=== PATIENT | male | born 1990 | race Caucasian/White ===

== ENCOUNTER 2016-08-20 19:53 | Emergency (ER) | payer OTHER ==
--- NOTE | 2016-08-20 20:36 | ED CLINICAL REPORT ---
Clinical Report - Physicians/Mid Levels [facility] [address] [place] [address] 08/20/2016 20:01 Patient: JEROMY HEALY Time Seen: 20:13; upon arrival, initial patient contact, initial documentation, patient care assumed. Arrived- By private vehicle. Historian- patient. HISTORY OF PRESENT ILLNESS Chief Complaint: Injury to the left thumb. The injury happened just prior to arrival. Occurred at work. The patient sustained a laceration from a knife. Patient is experiencing mild pain. Patient denies injury to the head or neck. No other injury. REVIEW OF SYSTEMS The patient sustained a laceration. No swelling, tingling, numbness or weakness. All systems otherwise negative, except as recorded above. PAST HISTORY See nurses notes. PROBLEMS: Hypotension. Hypovolemia. Dizziness. Back Pain. Lumbar Radiculopathy. Spondolitis. --20:18 Kailash Long R.N. ADDITIONAL SURGERIES: Hernia Repair. Inguinal Hernia Repair. Tonsillectomy. --20:18 Kailash Long, R.N. The patient's dominant hand is the right. Tetanus immunization status is unknown. SOCIAL HISTORY Heavy tobacco smoker. Regular alcohol use; consumes liquor weekly. No drug use. No recent travel. Is a local resident. FAMILY HISTORY No significant family medical history. ADDITIONAL NOTES The nursing notes have been reviewed with agreement regarding the chief complaint, HPI, ROS, PMH and patient medications and allergies. PHYSICAL EXAM Vital Signs: 08/20/2016 20:13 BP: 147/116. HR: 102. RR: 16. O2 saturation: 100%. Temp: 99 F. Pain level now: 4/10. Have been reviewed as abnormal. Hypertensive. Tachycardic. Respiratory rate normal. Temperature normal. Oxygen saturation normal. Appearance: Alert. Oriented X3. No acute distress. Head: Head atraumatic. Eyes: Pupils equal, round and reactive to light. Eyes normal inspection. Respiratory: No respiratory distress. Skin: Skin warm and dry. Skin intact. Extremities: Hand injury present. Tip of left thumb: mild tenderness and superficial laceration, which involves the nail bed; (superficial lac to part of nail and skin, no active bleeding, no closure needed). No erythema, swelling, puncture wound or foreign body. No subungual hematoma, nail avulsion, exposed bone or loss of the nail bed on the left thumb or tip amputation of the left thumb. Tip of left index finger. No wrist injury. Hand and wrist exam otherwise negative. Extremities otherwise negative. Neuro, Vascular and Tendons: Vascular status intact. Sensation intact. Motor intact. Tendon function intact. Neuro: Oriented X 3. No motor deficit. No sensory deficit. Note: isolated injury to digit. PROGRESS AND PROCEDURES Course of Care: 20:35 08/20/16. L&I paperwork completed. Patient counseled in person regarding the patient's stable condition and diagnosis. 20:35. Differential Diagnosis: Other possible considerations: finger lac, fb, skin/nail avulsion. Above considerations are based on history and physical exam. Differential diagnosis was discussed with patient. Disposition: Discharged home in good and improved condition (20:35). Condition: good and stable. CLINICAL IMPRESSION Single superficial laceration to the left thumb with fingernail injury.Treatment of laceration not delayed. No infection or foreign body present. INSTRUCTIONS Protect wound and keep wound area clean. Soak in warm soapy water. Apply bacitracin twice daily. Warnings: TETANUS: You were given a tetanus shot during your visit. Make a note for future reference. GENERAL WARNINGS: Return or contact your physician immediately if your condition worsens or changes unexpectedly, if not improving as expected, or if other problems arise. Specifically return if problem worsens. Follow-up: Follow up with your doctor in about three days as needed and for wound check. Call for an appointment. Summary of care provided to patient. Understanding of the discharge instructions verbalized by patient. (Electronically signed by Dai De Leon A.R.N.P. 08/20/2016 22:58)
--- NOTE | 2016-08-20 20:36 | ED ORDER SUMMARY ---
..... Patient: JEROMY HEALY OrderSheet [facility] VisitID: [id number] [address] [place] [address] 26y, M Registration Date/Time: 08/20/2016 ORDER SHEET Weight: 67.1 kg (stated) Allergies: No Known Drug Allergy GENERAL ORDERS: Dress Wounds (tube gauze) (20:27 08/20/2016 HBivens A.R.N.P.) (Ack 20:30 SRedmond) MEDICATION ORDERS: Tdap IM 0.5 mL (NOW, per protocol) (20:08/20/2016 HBivens A.R.N.P.) (20:30 Rudy Smart.N.) IV FLUIDS: ORDER SHEET NOTES: [Electronically signed by Dai De LeonR.N.PAmadou (22:58 08/20/2016)] [Electronically signed by Kailash Long R.N. (03:57 08/21/2016)] [Electronically locked/signed by Kailash Long R.N. (03:57 08/21/2016)]
--- NOTE | 2016-08-20 20:36 | ED NURSING NOTES ---
Clinical Report - Nurses [facility] [place] [address] 08/20/2016 20:01 Patient: JEROMY HEALY TRIAGE Triage time 20:10 Aug 20 2016. Acuity: LEVEL 3. Chief Complaint: INJURY TO LEFT HAND. INJURY TO THE LEFT THUMB WITH PARTIAL AMPUTATION (Laceration). Alert. RUTHIE COMA SCORE: [place] Coma Scale: 15- eyes open spontaneously (4); best verbal response- oriented x 4 (5); best motor response- obeys commands (6). --20:23 Kailash Long R.N. 20:13 08/20/16. BP: 147/116. HR: 102. RR: 16. O2 saturation: 100% on room air. Temp: 99 F (oral). Pain level now: 09/07. --20:23 Kailash Long R.N. Weight: 67.1 kg stated. Height/Length: 65 inches Per Patient. BMI: 24.6. --20:19 Kailash Long R.N. Medications Some anti-inflammatory Rx for groin pain (?). --20:17 Kailash Long R.N. Medication/allergy information source: the patient. --20:23 Kailash Long R.N. Allergies No Known Drug Allergy. --20:18 Kailash Long R.N. History Arrived by private vehicle. Historian: patient. Accompanied by family. Primary physician (Nafisa Vernon). ( (L) Thumb Laceration. 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 This occurred (45 minutes ago). He sustained a laceration. 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 PAST MEDICAL HX: Tetanus status: unknown. Immunizations: status is unknown. SOCIAL HX: Heavy tobacco smoker (cigarette)- 1 pack per day. Alcohol use; consumes a large amount of liquor weekly. No drug use. No infectious disease exposure. ABUSE ASSESSMENT: No report of abuse. FALL RISK ASSESSMENT: Fall risk assessment completed. No fall risk identified. NUTRITIONAL RISK ASSESSMENT: The nutritional risk assessment revealed no deficiencies. FUNCTIONAL ASSESSMENT: Functional assessment: no impairments noted. LEARNING NEEDS ASSESSMENT: The learning needs assessment revealed no barriers. SKIN INTEGRITY ASSESSMENT: Skin integrity risk assessment completed. No skin integrity risk identified. --20:23 Kailash Long R.N. PROBLEMS: Hypotension. Hypovolemia. Dizziness. Back Pain. Lumbar Radiculopathy. Spondolitis. --20:18 Kailash Long R.N. ADDITIONAL SURGERIES: Hernia Repair. Inguinal Hernia Repair. Tonsillectomy. --20:18 Kailash Long R.N. Interventions ID band on patient. To treatment room. --20:23 Kailash Long R.N. PHYSICAL ASSESSMENT GENERAL / NEURO / PSYCH: Oriented X 4. Alert. Appears in no acute distress. EXTREMITIES: Capillary refill is less than 2 seconds in the extremities. Extremity pulses are within normal limits. Extremities exhibit normal ROM. Left hand. SKIN: Skin is warm and dry. Laceration; ((L) Thumb). --20:24 Kailash Long R.N. NURSING PROGRESS NOTES Reassurance given. Patient identifiers checked. Call light placed in reach. Side rails up x 1. Bed placed in lowest position. Brakes of bed on. Patient ready for evaluation- chart flagged and ED physician notified. --20:24 Kailash Lnog R.N. 20:30 08/20/2016 TDAP IM 0.5 mL given. (Lot#: [id number], expiration date: 03/07/2018, Certified Prosthetist/Orthotist: sanofi pasteur). --20:30 Kailash Long R.N. Applied clean bulky dressing consisting of 4x4 gauze and telfa pad, following the application of antibiotic ointment. Secured with tube gauze. --20:40 Anil Garcia, HELDER Fibrous Plasterer 20:30. Wound cleansed with sterile saline. --03:57 Kailash Long R.N. DISPOSITION / DISCHARGE Departure time: 2044. --01:27 Kailash Long R.N. 20:40 08/20/16. HR: 98. RR: 16. O2 saturation: 99%. Pain level now: 2/10. Additional comments: (L) Thumb. --01:27 Kailash Long R.N. 20:45. Condition at departure: improved. No learning barriers present. Discharge instructions provided and reviewed with the patient. Reviewed wound care instructions. Reviewed referral to family practice. Patient verbalized understanding. Written instructions provided in [place]. The patient was discharged by the nurse practitioner. He was discharged home and accompanied by toolman. He left the Emergency Department ambulatory and via private vehicle. Director Of Safety driving. --01:32 Kailash Long R.N. Locked/Released at 08/21/2016 3:57 by Kailash Long R.N.
--- NOTE | 2016-08-20 20:36 | ED NURSING NOTES ---
Clinical Report - Nurses [facility] [place] [address] [place] [address] 08/20/2016 20:01 Patient: JEROMY HEALY TRIAGE Triage time 20:10 Aug 20 2016. Acuity: LEVEL 3. Chief Complaint: INJURY TO LEFT HAND. INJURY TO THE LEFT THUMB WITH PARTIAL AMPUTATION (Laceration). Alert. RUTHIE COMA SCORE: [place] Coma Scale: 15- eyes open spontaneously (4); best verbal response- oriented x 4 (5); best motor response- obeys commands (6). --20:23 Kailash Long R.N. 20:13 08/20/16. BP: 147/116. HR: 102. RR: 16. O2 saturation: 100% on room air. Temp: 99 F (oral). Pain level now: 09/07. --20:23 Kailash Long R.N. Weight: 67.1 kg stated. Height/Length: 65 inches Per Patient. BMI: 24.6. --20:19 Kailash Long R.N. Medications Some anti-inflammatory Rx for groin pain (?). --20:17 Kailash Long R.N. Medication/allergy information source: the patient. --20:23 Kailash Long R.N. Allergies No Known Drug Allergy. --20:18 Kailash Long R.N. History Arrived by private vehicle. Historian: patient. Accompanied by family. Primary physician (Nafisa Vernon). ( (L) Thumb Laceration. 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 This occurred (45 minutes ago). He sustained a laceration. 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 PAST MEDICAL HX: Tetanus status: unknown. Immunizations: status is unknown. SOCIAL HX: Heavy tobacco smoker (cigarette)- 1 pack per day. Alcohol use; consumes a large amount of liquor weekly. No drug use. No infectious disease exposure. ABUSE ASSESSMENT: No report of abuse. FALL RISK ASSESSMENT: Fall risk assessment completed. No fall risk identified. NUTRITIONAL RISK ASSESSMENT: The nutritional risk assessment revealed no deficiencies. FUNCTIONAL ASSESSMENT: Functional assessment: no impairments noted. LEARNING NEEDS ASSESSMENT: The learning needs assessment revealed no barriers. SKIN INTEGRITY ASSESSMENT: Skin integrity risk assessment completed. No skin integrity risk identified. --20:23 Kailash Long R.N. PROBLEMS: Hypotension. Hypovolemia. Dizziness. Back Pain. Lumbar Radiculopathy. Spondolitis. --20:18 Kailash Long R.N. ADDITIONAL SURGERIES: Hernia Repair. Inguinal Hernia Repair. Tonsillectomy. --20:18 Kailash Long R.N. Interventions ID band on patient. To treatment room. --20:23 Kailash Long R.N. PHYSICAL ASSESSMENT GENERAL / NEURO / PSYCH: Oriented X 4. Alert. Appears in no acute distress. EXTREMITIES: Capillary refill is less than 2 seconds in the extremities. Extremity pulses are within normal limits. Extremities exhibit normal ROM. Left hand. SKIN: Skin is warm and dry. Laceration; ((L) Thumb). --20:24 Kailash Long R.N. NURSING PROGRESS NOTES Reassurance given. Patient identifiers checked. Call light placed in reach. Side rails up x 1. Bed placed in lowest position. Brakes of bed on. Patient ready for evaluation- chart flagged and ED physician notified. --20:24 Kailash Long R.N. 20:30 08/20/2016 TDAP IM 0.5 mL given. (Lot#: [id number], expiration date: 03/07/2018, [employer]: sanofi pasteur). --20:30 Kailash Long R.N. Applied clean bulky dressing consisting of 4x4 gauze and telfa pad, following the application of antibiotic ointment. Secured with tube gauze. --20:40 Anil Garcia, HELDER Sql Database Programmer 20:30. Wound cleansed with sterile saline. --03:57 Kailash Long R.N. DISPOSITION / DISCHARGE Departure time: 2044. --01:27 Kailash Long R.N. 20:40 08/20/16. HR: 98. RR: 16. O2 saturation: 99%. Pain level now: 2/10. Additional comments: (L) Thumb. --01:27 Kailash Long R.N. 20:45. Condition at departure: improved. No learning barriers present. Discharge instructions provided and reviewed with the patient. Reviewed wound care instructions. Reviewed referral to family practice. Patient verbalized understanding. Written instructions provided in Citizen Of [place]. The patient was discharged by the nurse practitioner. He was discharged home and accompanied by charge machine operator. He left the Emergency Department ambulatory and via private vehicle. Pipelaying Fitter driving. --01:32 Kailash Long R.N. Locked/Released at 08/21/2016 3:57 by Kailash Long R.N.
--- NOTE | 2016-08-20 20:36 | ED ORDER SUMMARY ---
..... Patient: JEROMY HEALY OrderSheet [facility] VisitID: [id number] [address] [address] 26y, M Registration Date/Time: 08/20/2016 ORDER SHEET Weight: 67.1 kg (stated) Allergies: No Known Drug Allergy GENERAL ORDERS: Dress Wounds (tube gauze) (20:27 08/20/2016 HBivens A.R.N.P.) (Ack 20:30 SRedmond) MEDICATION ORDERS: Tdap IM 0.5 mL (NOW, per protocol) (20:08/20/2016 HBivens A.R.N.P.) (20:30 Rudy Smart.N.) IV FLUIDS: ORDER SHEET NOTES: [Electronically signed by Dai De LeonR.N.PAmadou (22:58 08/20/2016)] [Electronically signed by Kailash Long R.N. (03:57 08/21/2016)] [Electronically locked/signed by Kailash Long R.N. (03:57 08/21/2016)]
--- NOTE | 2016-08-21 03:58 | ED MAR SUMMARY ---
..... Medication Administration Record [facility] [address] [place] [address] Patient: JEROMY HEALY Visit ID: [id number] 26y, M Weight: 67.1 kg Height/Length: 65 in BMI: 24.6 ALLERGIES: No Known Drug Allergy Given 20:30 08/20/2016 Kailash Long R.N. Medication Administered: TDAP [IM], Dose: 0.5 mL IM. Medication Ordered: Tdap IM 0.5 mL (NOW, per protocol).
--- NOTE | 2016-08-21 03:58 | ED MED RECONCILIATION SUMMARY ---
Patient: JEROMY HEALY Medication Reconciliation Report [facility] VisitID: [id number] [address] [place] [address] 26y, M Registration Date/Time: 08/20/2016 Weight: 67.1 kg Height/Length: 65 in. BMI: 24.6 ALLERGIES: No Known Drug Allergy The patient's Home Medications are listed below: THE FOLLOWING MEDICATIONS NEED TO BE RECONCILED: Some anti-inflammatory Rx for groin pain (?) The source(s) of the original Home Medication information: patient The following Medications were given to the patient in the Emergency Department: TDAP [IM] IM 0.5 mL, administered: 08/20/2016 8:30:00 PM The following Medications were prescribed to the patient: None.
--- NOTE | 2016-08-21 03:58 | ED MED RECONCILIATION SUMMARY ---
Patient: JEROMY HEALY Medication Reconciliation Report [facility] VisitID: [id number] [address] [place] [address] 26y, M Registration Date/Time: 08/20/2016 Weight: 67.1 kg Height/Length: 65 in. BMI: 24.6 ALLERGIES: No Known Drug Allergy The patient's Home Medications are listed below: THE FOLLOWING MEDICATIONS NEED TO BE RECONCILED: Some anti-inflammatory Rx for groin pain (?) The source(s) of the original Home Medication information: patient The following Medications were given to the patient in the Emergency Department: TDAP [IM] IM 0.5 mL, administered: 08/20/2016 8:30:00 PM The following Medications were prescribed to the patient: None.
--- NOTE | 2016-08-21 03:58 | ED DISCHARGE INSTRUCTIONS ---
Patient: JEROMY HEALY General Instructions [facility] VisitID: [id number] [place] [address] 26y, M Registration Date/Time: 08/20/2016 Single superficial laceration to the left thumb with fingernail injury.Treatment of laceration not delayed. No infection or foreign body present. INSTRUCTIONS Protect wound and keep wound area clean. Soak in warm soapy water. Apply bacitracin twice daily. Warnings: TETANUS: You were given a tetanus shot during your visit. Make a note for future reference. GENERAL WARNINGS: Return or contact your physician immediately if your condition worsens or changes unexpectedly, if not improving as expected, or if other problems arise. Specifically return if problem worsens. Follow-up: Follow up with your doctor in about three days as needed and for wound check. Call for an appointment. Summary of care provided to patient. Understanding of the discharge instructions verbalized by patient. ADDITIONAL INFORMATION Laceration (All Closures) Alaceration is a cut through the skin. This will usually require stitches (sutures) or cesar if it is deep. Minor cuts may be treated with a surgical tape closure orskin glue. Home care The following guidelines will help you care for your laceration at home: Extremity, face, or trunk wounds Keep the wound clean and dry. If a bandage was applied and it becomes wet or dirty, replace it. Otherwise, leave it in place for the first 24 hours. If stitches or cesar were used, clean the wound daily. After removing the bandage, wash the area with soap and water. Use a wet cotton swab to loosen and remove any blood or crust that forms. The doctor may prescribe an antibiotic cream or ointment to prevent infection. Do not stop taking this medication until you have finished the prescribed course or the doctor tells you to stop. The doctor may also prescribe medications for pain. Follow the doctors instructions for taking these medications. You may remove the bandage to shower as usual after the first 24 hours, but do not soak the area in water (no swimming) until the stitches or cesar are removed. If surgical tape was used, keep the area clean and dry. If it becomes wet, blot it dry with a towel. If skin glue was used, do not scratch, rub, or pick at the adhesive film. Do not place tape directly over the film. Do not apply liquid, ointment, or creams to the wound while the film is in place. Do not clean the wound with peroxide and do not apply ointments. Avoid activities that cause heavy sweating until the film has fallen off. Protect the wound from prolonged exposure to sunlight or tanning lamps. You may shower as usual but do not soak the wound in water (no baths or swimming). The film will fall off by itself in 510 days. Scalp wounds During the first two days, you may carefully rinse your hair in the shower to remove blood, glass or dirt particles. After two days, you may shower and shampoo your hair normally. Do not soak your scalp in the tub or go swimming until the stitches or cesar have been removed. Talk with your doctor before applying any antibiotic ointment to the wound. Mouth wounds Eat soft foods to reduce pain. If the cut is inside of your mouth, clean by rinsing after each meal and at bedtime with a mixture of equal parts water and hydrogen peroxide (do not swallow!). Or, you can use a cotton swab to directly apply hydrogen peroxide onto the cut. Mouth wounds can be painful when eating. You may use an [id number] local numbing solution for pain relief. If this is not available, you may use any numbing solution for teething babies. You may apply this directly to the sores with a cotton-tip swab or with your finger. Follow-up care Follow up with your health care provider. Most skin wounds heal within ten days. Mouth and facial wounds heal within five days. However, even with proper treatment, a wound infection may sometimes occur. Therefore, you should check the wound daily for signs of infection listed below. Stitches should be removed from the face within five days; stitches and cesar should be removed from other parts of the body within 714 days. If dissolving stitches were used in the mouth, these will fall out or dissolve without the need for removal. If tape closures were used, remove them yourself if they have not fallen off after 7 days. Ifskin glue was used, the film will fall off by itself in 510 days. When to seek medical care Get prompt medical attention if any of these occur: Bleeding not controlled by direct pressure Signs of infection, including increasing pain in the wound, increasing wound redness or swelling, or pus coming from the wound Fever of 100.4F (38C) or higher, or as directed by your health care provider Stitches or cesar come apart or fall out or surgical tape falls off before 7 days Wound edges re-open Laceration, Extremity (Sutures, Quinault, Or Tape) A laceration is a cut through the skin. This will usually require stitches (sutures) or cesar if it is deep. Minor cuts may be treated with surgical tape closures. Home care The following guidelines will help you care for your laceration at home: Keep the wound clean and dry. If a bandage was applied and it becomes wet or dirty, replace it. Otherwise, leave it in place for the first 24 hours, then change it once a day or as directed. If stitches or cesar were used, clean the wound daily: After removing the bandage, wash the area with soap and water. Use a wet cotton swab to loosen and remove any blood or crust that forms. After cleaning, keep the wound clean and dry. Talk with your doctor before applying any antibiotic ointment to the wound. Reapply the bandage. You may remove the bandage to shower as usual after the first 24 hours, but do not soak the area in water (no swimming) until the stitches or cesar are removed. If surgical tape closures were used, keep the area clean and dry. If it becomes wet, blot it dry with a towel. The doctor may prescribe an antibiotic cream or ointment to prevent infection. Do not stop taking this medication until you have finished the prescribed course or the doctor tells you to stop. The doctor may also prescribe medications for pain. Follow the doctors instructions for taking these medications. If you have chronic liver or kidney disease or ever had a stomach ulcer or GI bleeding, talk with your doctor before using these medicines. Follow-up care Follow up with your health care provider. Most skin wounds heal within ten days. However, an infection may sometimes occur despite proper treatment. Therefore, check the wound daily for the signs of infection listed below. Stitches and cesar should be removed within 714 days. If surgical tape closures were used, you may remove them after 10 days, if they have not fallen off by then. Notify your doctor if you notice persistent numbness or weakness in the injured extremity. (Note:A radiologist will review any X-rays that were taken. We will notify you of any new findings that may affect your care.) When to seek medical care Get prompt medical attention if any of these occur: Increasing pain in the wound Redness, swelling, or pus coming from the wound Fever of 100.4F (38C) or higher, or as directed by your health care provider If stitches or cesar come apart or fall out before your next appointment If the surgical tape closures fall off within seven days, or the wound edges re-open Bleeding not controlled by direct pressure Diphtheria Toxoid Adsorbed, Pertussis Vaccine, Acellular (Adsorbed), Tetanus Toxoid, Adsorbed Suspension for injection What is this medicine? DIPHTHERIA and TETANUS TOXOIDS; PERTUSSIS VACCINE (dif THEER ee uh and TET n us TOK soids; per TUS iss dinorak SEEN) is used to prevent diphtheria, tetanus, and pertussis infections. How should I use this medicine? This vaccine is for injection into a muscle. It is given by a health medicare nurse. A copy of Vaccine Information Statements will be given before each vaccination. Read this sheet carefully each time. The sheet may change frequently. Talk to your impregnating tank operator regarding the use of this vaccine in children. While the DTP vaccine may be given to children ages 6 weeks to 7 years and the Tdap vaccine may be given to children at least 10 years old, precautions do apply. What side effects may I notice from receiving this medicine? Side effects that you should report to your doctor or health medicare nurse as soon as possible: allergic reactions like skin rash, itching or hives, swelling of the face, lips, or tongue breathing problems fever of 103 degrees F or more flu-like symptoms inconsolable crying infection pain, tingling, numbness in the hands or feet seizures swelling of arm or leg that was injected unusually weak or tired Side effects that usually do not require immediate medical attention (report these side effects to your doctor or health medicare nurse if they continue or are bothersome): fussy, irritable loss of appetite fever of 102 degrees F or less pain, tenderness, redness, swelling, or a 'knot' at site where injected vomiting What may interact with this medicine? immune globulin medicines that suppress your immune function like adalimumab, anakinra, infliximab medicines to treat cancer medicines that treat or prevent blood clots like warfarin, enoxaparin, and dalteparin steroid medicines like prednisone or cortisone What if I miss a dose? It is important not to miss your dose. Call your doctor or health medicare nurse if you are unable to keep an appointment. Where should I keep my medicine? This drug is given in a hospital or clinic and will not be stored at home. What should I tell my health care provider before I take this medicine? They need to know if you have any of these conditions: blood disorders like hemophilia fever or infection immune system problems neurologic disease seizures an unusual or allergic reaction to vaccines, thimerosal, latex, other medicines, foods, dyes, or preservatives or trying to get breast-feeding What should I watch for while using this medicine? See your health care provider for all shots of this vaccine as directed. To have protection from infection, you must have 3 shots of this vaccine plus boosters as needed. Tell your doctor right away if you have any serious or unusual side effects after getting this vaccine. You have been given the following additional information: Laceration, All Laceration, Extrem (Suture, Staple, Or Tape) Diphtheria Toxoid Adsorbed, Pertussis Vaccine, Acellular (Adsorbed), Tetanus Toxoid, Adsorbed Suspension for injection (Electronically signed by Dai De Leon A.R.N.P. 08/20/2016 22:58)
--- NOTE | 2016-08-21 03:58 | ED MAR SUMMARY ---
..... Medication Administration Record [facility] [address] [place] [address] Patient: JEROMY HEALY Visit ID: [id number] 26y, M Weight: 67.1 kg Height/Length: 65 in BMI: 24.6 ALLERGIES: No Known Drug Allergy Given 20:30 08/20/2016 Kailash Long R.N. Medication Administered: TDAP [IM], Dose: 0.5 mL IM. Medication Ordered: Tdap IM 0.5 mL (NOW, per protocol).
== END 2016-08-20 20:45 | disposition home or self-care (01) ==
LOC: ED SRH 19:53
DX: S61.112A Laceration without foreign body of left thumb with damage to nail, initial encounter (principal); W26.0XXA Contact with knife, initial encounter; Y93.G3 Activity, cooking and baking; Y92.69 Other specified industrial and construction area as the place of occurrence of the external cause; Y99.0 Civilian activity done for income or pay; Z23 Encounter for immunization; M46.90 Unspecified inflammatory spondylopathy, site unspecified; F17.210 Nicotine dependence, cigarettes, uncomplicated

== ENCOUNTER 2016-11-08 01:36 | Emergency (ER) | payer OTHER ==
--- NOTE | 2016-11-08 02:52 | ED CLINICAL REPORT ---
Clinical Report - Physicians/Mid Levels [facility] [address] [place] [address] 11/08/2016 1:37 Patient: JEROMY HEALY Time Seen: 0147; initial patient contact. Arrived- By private vehicle. Historian- patient. HISTORY OF PRESENT ILLNESS Chief Complaint: (right groin pain). This started past month and is still present. The problem is described as moderate. It was abrupt in onset and has been intermittent but is not gone now. No penile discharge, discomfort with urination, urinary frequency, genital lesion or testicular pain. No urgency of urination, flank pain, Duarte catheter problem, inguinal swelling or problem with the foreskin. Able to void. Not voiding only small amounts. Sexual history is noncontributory. (able to bare weight). Similar symptoms previously: None. Recent medical care: Not recently seen/assessed. REVIEW OF SYSTEMS No fever or chills. All systems otherwise negative, except as recorded above. PAST HISTORY See nurses notes. SOCIAL HISTORY Smoker- current status unknown. Occasional alcohol use. No drug use. No recent travel. Is a local resident. ADDITIONAL NOTES The nursing notes have been reviewed. PHYSICAL EXAM Vital Signs: 11/08/2016 01:41 BP: 140/82. HR: 82. RR: 15. O2 saturation: 100%. Temp: 98.4 F. Pain level now: 0/10. Oxygen saturation normal. Appearance: Alert. Oriented X3. No acute distress. ENT: Normal external inspection. Pharynx normal. Neck: Neck supple. No lymphadenopathy. Respiratory: No respiratory distress. Breath sounds normal. Abdomen: Soft and nontender. Bowel sounds normal. No mass. : Normal genitalia. Testes descended. No urethral discharge, genital lesion, phimosis, herpes-like lesions or paraphimosis. No hernia mass, scrotal mass or inguinal lymphadenopathy. (right groin tenderness. no overlying skin changes. no hernia). Skin: Skin warm and dry. Normal skin color. No rash. Normal skin turgor. Extremities: Extremities exhibit normal ROM. No lower extremity edema. LABS, X-RAYS, AND EKG Lt Hip X-ray: (PROCEDURE: XR HIP 2VW W W/O AP PELVIS-RT INDICATION: TRAUMA/INJURY TECHNIQUE: AP view of the pelvis and hips with lateral view of the right hip. COMPARISON: None. FINDINGS: RIGHT HIP: Osseous structures and joint spaces are normal. PELVIS: Osseous pelvis is normal. IMPRESSION: 1. Negative pelvis and right hip.). The X-rays were independently viewed by me and interpreted by the radiologist. The X-rays were discussed with the radiologist (via pacs). Scrotal Sonogram: PROCEDURE: US SCROTUM/TESTICLE INDICATION: Right groin pain. History of left hernia repair. TECHNIQUE: Nuno scale and color Doppler sonographic images through the scrotum were without and with Valsalva, and in the upright position. COMPARISON: None. FINDINGS: Scans were obtained of the right inguinal region. There is no evidence of mass and no evidence of hernia. RIGHT TESTICLE: Right testicle normal (4.6 x 2.1 x 2.9 cm) with normal vascularity. Right epididymis demonstrates two small epididymal cyst (5 mm, 5 mm). Minimal right hydrocele. LEFT TESTICLE: Left testicle is normal (4.1 x 2.0 x 2.5 cm) with normal vascularity. Left epididymis is normal. Minimal left hydrocele. IMPRESSION: 1. Normal testicles. 2. Minimal hydroceles. 3. No evidence of right inguinal mass or hernia. The study was independently viewed by me and interpreted by the radiologist. The study was discussed with the radiologist (via pacs). PROGRESS AND PROCEDURES Course of Care: he patient is a pleasant 26-year-old male opened past medical history presenting free fashion a right-sided groin pain. At this and differential diagnosis includes epididymitis, orchitis, urinary tract infection, hernia, testicular torsion, or osseous normality of the right hip. Patient will be Evaluated with urinalysis, ultrasound, and radiographs of the right hip. Patient is agreeable to the treatment and plan. No other acute findings noted on patient's examination. Patient is agreeable to the treatment plan. the patient's workup is markable for the findings above. No acute findings noted on patient's x-ray of the right hip as well as ultrasound. The concerning lesions noted. Urinalysis did not show any signs of urinary tract infection. Because of the patient's negative workup. Emergency department, discussed with the patient other alternatives to the patient's discomfort. Recommended patient follow-up with a primary care doctor for further evaluation and management of the right-sided inguinal pain. After having a discussion with the patient, patient reported that it does increase in pain when he abducts the right hip. Concern forsoft tissue sprain/strain at this time. No neurovascular compromise. Patient is resting in bed and in no acute distress. No signs of infection. Do not feel patient has a septic joint at this time. Discussed with patient his workup here in emergency department including diagnosis come on care, f All questions have been answered. The patient expressed understanding of these instructions and w. CLINICAL IMPRESSION Strain of right inguinal area (acute). INSTRUCTIONS Warnings: CONTROLLED SUBSTANCE WARNINGS. GENERAL WARNINGS: Return or contact your physician immediately if your condition worsens or changes unexpectedly, if not improving as expected, or if other problems arise. Specifically return if pain, vomiting, bleeding, breathing difficulty or fever. Your Current Medications: CONTINUE TAKING THE FOLLOWING MEDICATIONS: None*. Prescription Medications: [place] 5 mg / 325 mg tablets: take 1 orally every 6 hours as needed for pain. Dispense fifteen (15). No refill. Substitution is permissible. OTC Medications: Motrin (available over the counter): take according to label instructions. Follow-up: Return to the emergency department as needed. Follow up with your doctor in three days. Reason for referral: recheck today's concerns. Summary of care provided to patient via paper. Screening today revealed the patient's blood pressure to be in the normal range. The patient should follow up with a primary care provider for blood pressure management. Understanding of the discharge instructions verbalized by patient. (Electronically signed by Ihsan Saldaña Dr. 11/10/2016 16:27)
--- NOTE | 2016-11-08 02:52 | ED NURSING NOTES ---
Clinical Report - Nurses [facility] [address] [place] [address] 11/08/2016 1:37 Patient: JEROMY HEALY TRIAGE Triage time 01:41. Acuity: LEVEL 4. Chief Complaint: (right side groin pain). 01:46. Alert. SEPSIS SCREEN: Sepsis Screen. Negative (no infection suspected/documented). --01:46 Kailash Jade R.N. 01:41 11/08/16. BP: 140/82. HR: 82. RR: 15. O2 saturation: 100% on room air. Temp: 98.4 F (oral). Pain level now: 0/10. --01:46 Kailash Jade R.N. Weight: 65.7 kg stated. Height/Length: 65.5 inches Per Patient. BMI: 23.8. --01:45 Kailash Jade R.N. Medications None. --01:42 Kailash Jade R.N. Medication/allergy information source: the patient. --01:46 Kailash Jade R.N. Allergies No Known Drug Allergy. --01:42 Kailash Jade R.N. History Arrived by private vehicle. Historian: patient. Unaccompanied. Primary physician (Dara Vernon). Onset. (2 months ago- worse for last week). Treatment SET UP MOLD TECHNICIAN: None. PAST MEDICAL HX: Immunizations: up-to-date. SOCIAL HX: Current every day heavy tobacco smoker- 1 pack per day. Occasional alcohol use. No drug use. No infectious disease exposure. ABUSE ASSESSMENT: No report of abuse. FALL RISK ASSESSMENT: Fall risk assessment completed. No fall risk identified. NUTRITIONAL RISK ASSESSMENT: The nutritional risk assessment revealed no deficiencies. FUNCTIONAL ASSESSMENT: Functional assessment: no impairments noted. LEARNING NEEDS ASSESSMENT: The learning needs assessment revealed no barriers. SKIN INTEGRITY ASSESSMENT: Skin integrity risk assessment completed. No skin integrity risk identified. --01:46 Kailash Jade R.N. PROBLEMS: Lumbar Radiculopathy. Spondolitis. --01:43 Kailash Jade R.N. ADDITIONAL SURGERIES: Hernia Repair. Inguinal Hernia Repair. Tonsillectomy. --01:43 Kailash Jade R.N. Interventions ID band on patient. To treatment room. --01:46 Kailash Jade R.N. PHYSICAL ASSESSMENT 01:46. Ambulatory to room. Patient gowned. GENERAL / NEURO / PSYCH: Alert. Oriented X 4. HEENT: No facial asymmetry noted. Mucous membranes are pink. RESPIRATORY: Respirations not labored. SKIN: Skin intact. Skin is warm and dry. Normal skin turgor. --01:46 Kailash Jade R.N. NURSING PROGRESS NOTES 01:47. Head of bed elevated. Two patient identifiers checked. Call light placed in reach. Bed placed in lowest position. Brakes of bed on. Patient ready for evaluation- chart flagged. --01:47 Kailash Jade R.N. 02:05. Patient ID band checked for patient name and birthdate: patient confirmed. Clean catch urine collected with return of yellow-colored clear urine; sample sent to lab for urinalysis. Specimen labeled in the presence of the patient. --02:13 Kailash Jade R.N. 02:10 zoning technician with pt for exam. --02:13 Kailash Jade R.N. 02:25. Patient transported to radiology by stretcher with tech. --02:38 Kailash Jade R.N. 02:34. Patient returned from radiology by stretcher with tech. --02:38 Kailash Jade R.N. DISPOSITION / DISCHARGE 03:12 11/08/16. No learning barriers present. Discharge instructions provided and reviewed with the patient. Reviewed warnings. Reviewed medication(s). Treatments reviewed. Patient verbalized understanding. Written instructions provided in Ethiopian. The patient was discharged home. He left the Emergency Department ambulatory and via private vehicle. Patient driving. --03:12 Sagrario Bowers R.N. 03:10 11/08/16. BP: 129/79. HR: 95. RR: 15. O2 saturation: 99%. Temp: deferred. Pain level now: 07/10. --03:12 Sagrario Bowers R.N. Locked/Released at 11/12/2016 19:33 by Sagrario Bowers R.N.
--- NOTE | 2016-11-08 02:52 | ED ORDER SUMMARY ---
..... Patient: JEROMY HEALY OrderSheet [facility] VisitID: [id number] [place] [address] 26y, M Registration Date/Time: 11/08/2016 ORDER SHEET Weight: 65.7 kg (stated) Allergies: No Known Drug Allergy GENERAL ORDERS: UA-Culture if indicated Urgent (01:47 11/08/2016 Jalen Becerra) (Ack 1:49 CHagerty ER Vp Account Director) (2:14 JQuivey R.N.) US Scrotum/Testicular Urgent (02:01 11/08/2016 Jalen Becerra) (Ack 2:04 Anders ER Vp Account Director) (2:39 JQuivey R.N.) Hip 2V Right w AP Pelvis Urgent (02:02 11/08/2016 Jalen Becerra) (Ack 2:04 Anders ER Vp Account Director) (2:39 JQuivey R.N.) MEDICATION ORDERS: IV FLUIDS: ORDER SHEET NOTES: [Electronically signed by Ihsan Saldaña Dr. (16:27 11/10/2016)] [Electronically signed by Sagrario Bowers R.N. (19:33 11/12/2016)] [Electronically locked/signed by Sagrario Bowers R.N. (19:33 11/12/2016)]
--- NOTE | 2016-11-08 02:52 | ED ORDER SUMMARY ---
..... Patient: JEROMY HEALY OrderSheet [facility] VisitID: [id number] [place] [address] 26y, M Registration Date/Time: 11/08/2016 ORDER SHEET Weight: 65.7 kg (stated) Allergies: No Known Drug Allergy GENERAL ORDERS: UA-Culture if indicated Urgent (01:47 11/08/2016 Jalen Becerra) (Ack 1:49 CHagerty ER Network Operations Project Manager) (2:14 JQuivey R.N.) US Scrotum/Testicular Urgent (02:01 11/08/2016 Jalen Becerra) (Ack 2:04 Anders ER Network Operations Project Manager) (2:39 JQuivey R.N.) Hip 2V Right w AP Pelvis Urgent (02:02 11/08/2016 Jalen Becerra) (Ack 2:04 Anders ER Network Operations Project Manager) (2:39 JQuivey R.N.) MEDICATION ORDERS: IV FLUIDS: ORDER SHEET NOTES: [Electronically signed by Ihsan Saldaña Dr. (16:27 11/10/2016)] [Electronically signed by Sagrario Bowers R.N. (19:33 11/12/2016)] [Electronically locked/signed by Sagrario Bowers R.N. (19:33 11/12/2016)]
--- NOTE | 2016-11-08 02:52 | ED NURSING NOTES ---
Clinical Report - Nurses [facility] [address] [place] [address] 11/08/2016 1:37 Patient: JEROMY HEALY TRIAGE Triage time 01:41. Acuity: LEVEL 4. Chief Complaint: (right side groin pain). 01:46. Alert. SEPSIS SCREEN: Sepsis Screen. Negative (no infection suspected/documented). --01:46 Kailash Jade R.N. 01:41 11/08/16. BP: 140/82. HR: 82. RR: 15. O2 saturation: 100% on room air. Temp: 98.4 F (oral). Pain level now: 0/10. --01:46 Kailash Jade R.N. Weight: 65.7 kg stated. Height/Length: 65.5 inches Per Patient. BMI: 23.8. --01:45 Kailash Jade R.N. Medications None. --01:42 Kailash Jade R.N. Medication/allergy information source: the patient. --01:46 Kailash Jade R.N. Allergies No Known Drug Allergy. --01:42 Kailash Jade R.N. History Arrived by private vehicle. Historian: patient. Unaccompanied. Primary physician (Dara Vernon). Onset. (2 months ago- worse for last week). Treatment MINE WIRER: None. PAST MEDICAL HX: Immunizations: up-to-date. SOCIAL HX: Current every day heavy tobacco smoker- 1 pack per day. Occasional alcohol use. No drug use. No infectious disease exposure. ABUSE ASSESSMENT: No report of abuse. FALL RISK ASSESSMENT: Fall risk assessment completed. No fall risk identified. NUTRITIONAL RISK ASSESSMENT: The nutritional risk assessment revealed no deficiencies. FUNCTIONAL ASSESSMENT: Functional assessment: no impairments noted. LEARNING NEEDS ASSESSMENT: The learning needs assessment revealed no barriers. SKIN INTEGRITY ASSESSMENT: Skin integrity risk assessment completed. No skin integrity risk identified. --01:46 Kailash Jade R.N. PROBLEMS: Lumbar Radiculopathy. Spondolitis. --01:43 Kailash Jade R.N. ADDITIONAL SURGERIES: Hernia Repair. Inguinal Hernia Repair. Tonsillectomy. --01:43 Kailash Jade R.N. Interventions ID band on patient. To treatment room. --01:46 Kailash Jade R.N. PHYSICAL ASSESSMENT 01:46. Ambulatory to room. Patient gowned. GENERAL / NEURO / PSYCH: Alert. Oriented X 4. HEENT: No facial asymmetry noted. Mucous membranes are pink. RESPIRATORY: Respirations not labored. SKIN: Skin intact. Skin is warm and dry. Normal skin turgor. --01:46 Kailash Jade R.N. NURSING PROGRESS NOTES 01:47. Head of bed elevated. Two patient identifiers checked. Call light placed in reach. Bed placed in lowest position. Brakes of bed on. Patient ready for evaluation- chart flagged. --01:47 Kailash Jade R.N. 02:05. Patient ID band checked for patient name and birthdate: patient confirmed. Clean catch urine collected with return of yellow-colored clear urine; sample sent to lab for urinalysis. Specimen labeled in the presence of the patient. --02:13 Kailash Jade R.N. 02:10 oracle technical architect with pt for exam. --02:13 Kailash Jade R.N. 02:25. Patient transported to radiology by stretcher with tech. --02:38 Kailash Jade R.N. 02:34. Patient returned from radiology by stretcher with tech. --02:38 Kailash Jade R.N. DISPOSITION / DISCHARGE 03:12 11/08/16. No learning barriers present. Discharge instructions provided and reviewed with the patient. Reviewed warnings. Reviewed medication(s). Treatments reviewed. Patient verbalized understanding. Written instructions provided in Malian. The patient was discharged home. He left the Emergency Department ambulatory and via private vehicle. Patient driving. --03:12 Sagrario Bowers R.N. 03:10 11/08/16. BP: 129/79. HR: 95. RR: 15. O2 saturation: 99%. Temp: deferred. Pain level now: 07/10. --03:12 Sagrario Bowers R.N. Locked/Released at 11/12/2016 19:33 by Sagrario Bowers R.N.
--- NOTE | 2016-11-08 04:51 | DIAGNOSTIC IMAGING REPORT ---
PROCEDURE: XR HIP 2VW W W/O AP PELVIS-RT INDICATION: TRAUMA/INJURY TECHNIQUE: AP view of the pelvis and hips with lateral view of the right hip. COMPARISON: None. FINDINGS: RIGHT HIP: Osseous structures and joint spaces are normal. PELVIS: Osseous pelvis is normal. IMPRESSION: 1. Negative pelvis and right hip.
--- NOTE | 2016-11-08 05:04 | DIAGNOSTIC IMAGING REPORT ---
PROCEDURE: US SCROTUM/TESTICLE INDICATION: Right groin pain. History of left hernia repair. TECHNIQUE: Nuno scale and color Doppler sonographic images through the scrotum were without and with Valsalva, and in the upright position. COMPARISON: None. FINDINGS: Scans were obtained of the right inguinal region. There is no evidence of mass and no evidence of hernia. RIGHT TESTICLE: Right testicle normal (4.6 x 2.1 x 2.9 cm) with normal vascularity. Right epididymis demonstrates two small epididymal cyst (5 mm, 5 mm). Minimal right hydrocele. LEFT TESTICLE: Left testicle is normal (4.1 x 2.0 x 2.5 cm) with normal vascularity. Left epididymis is normal. Minimal left hydrocele. IMPRESSION: 1. Normal testicles. 2. Minimal hydroceles. 3. No evidence of right inguinal mass or hernia.
--- NOTE | 2016-11-12 19:33 | ED DISCHARGE INSTRUCTIONS ---
Patient: JEROMY HEALY General Instructions [facility] VisitID: [id number] [place] [address] 26y, M Registration Date/Time: 11/08/2016 Strain of right inguinal area (acute). INSTRUCTIONS Warnings: CONTROLLED SUBSTANCE WARNINGS. GENERAL WARNINGS: Return or contact your physician immediately if your condition worsens or changes unexpectedly, if not improving as expected, or if other problems arise. Specifically return if pain, vomiting, bleeding, breathing difficulty or fever. Your Current Medications: CONTINUE TAKING THE FOLLOWING MEDICATIONS: None*. Prescription Medications: [place] 5 mg / 325 mg tablets: take 1 orally every 6 hours as needed for pain. Dispense fifteen (15). No refill. Substitution is permissible. OTC Medications: Motrin (available over the counter): take according to label instructions. Follow-up: Return to the emergency department as needed. Follow up with your doctor in three days. Reason for referral: recheck today's concerns. Summary of care provided to patient via paper. Screening today revealed the patient's blood pressure to be in the normal range. The patient should follow up with a primary care provider for blood pressure management. Understanding of the discharge instructions verbalized by patient. ADDITIONAL INFORMATION Groin Strain [Adult] A groin strain is a stretching or partial tearing in the muscle of the lower abdomen or upper thigh. This may occur as a result of excessive coughing, heavy lifting, or strenuous sports. The pain may last for several days to several weeks, depending on how bad the stretch or tear is. This will improve with rest, ice, and anti-inflammatory medicines. A groin strain can lead to a groin hernia (inguinal hernia). A hernia is a complete tear of the abdominal muscle, which allows abdominal contents (fat or intestines) to bulge forward and create a visible swelling just above the thigh crease. This is a more serious problem and may need surgery to repair it. When you lie down, the bulge should reduce in size or disappear completely. If it does not, and you are unable to flatten it with your hand, medical attention is needed at once. Home Care: Avoid heavy lifting and straining or any activities that cause groin pain. You may use acetaminophen (Tylenol) or ibuprofen (Motrin, Advil) to control pain, unless another pain medicine was prescribed. [NOTE: If you have chronic liver or kidney disease or ever had a stomach ulcer or GI bleeding, talk with your doctor before using these medicines.] Follow Up with your physician, or as directed by our staff. Make an appointment with your doctor if you develop a bulge in the area of the groin strain. Return Promptly or contact your doctor if any of the following occur: Increasing pain in the area of the groin strain Tender bulge just above the groin crease that does not flatten when you lie down or press on it Generalized abdominal swelling or pain Fever of 100.4F (38C) or higher, or as directed by your healthcare provider Repeated vomiting Pain moves to the lower right abdomen (just below the waistline) or spreads to the back Hydrocodone Bitartrate, Acetaminophen Oral tablet What is this medicine? ACETAMINOPHEN; HYDROCODONE (a set a LAURA annath fen; twan droe KOE done) is a pain reliever. It is used to treat mild to moderate pain. How should I use this medicine? Take this medicine by mouth. Swallow it with a full glass of water. Follow the directions on the prescription label. If the medicine upsets your stomach, take the medicine with food or milk. Do not take more than you are told to take. Talk to your coal screener regarding the use of this medicine in children. This medicine is not approved for use in children. What side effects may I notice from receiving this medicine? Side effects that you should report to your doctor or health medical care administrator as soon as possible: allergic reactions like skin rash, itching or hives, swelling of the face, lips, or tongue breathing problems confusion feeling faint or lightheaded, falls stomach pain yellowing of the eyes or skin Side effects that usually do not require medical attention (report to your doctor or health medical care administrator if they continue or are bothersome): nausea, vomiting stomach upset What may interact with this medicine? alcohol antihistamines isoniazid medicines for depression, anxiety, or psychotic disturbances medicines for sleep muscle relaxants naltrexone narcotic medicines (opiates) for pain phenobarbital ritonavir tramadol What if I miss a dose? If you miss a dose, take it as soon as you can. If it is almost time for your next dose, take only that dose. Do not take double or extra doses. Where should I keep my medicine? Keep out of the reach of children. This medicine can be abused. Keep your medicine in a safe place to protect it from theft. Do not share this medicine with anyone. Selling or giving away this medicine is dangerous and against the law. Store at room temperature between 15 and 30 degrees C (59 and 86 degrees F). Protect from light. Keep container tightly closed. Throw away any unused medicine after the expiration date. Discard unused medicine and used packaging carefully. Pets and children can be harmed if they find used or lost packages. What should I tell my health care provider before I take this medicine? They need to know if you have any of these conditions: brain tumor Crohn's disease, inflammatory bowel disease, or ulcerative colitis drink more than 3 alcohol-containing drinks per day drug abuse or addiction head injury heart or circulation problems kidney disease or problems going to the bathroom liver disease lung disease, asthma, or breathing problems an unusual or allergic reaction to acetaminophen, hydrocodone, other opioid analgesics, other medicines, foods, dyes, or preservatives or trying to get breast-feeding What should I watch for while using this medicine? Tell your doctor or health medical care administrator if your pain does not go away, if it gets worse, or if you have new or a different type of pain. You may develop tolerance to the medicine. Tolerance means that you will need a higher dose of the medicine for pain relief. Tolerance is normal and is expected if you take the medicine for a long time. Do not suddenly stop taking your medicine because you may develop a severe reaction. Your body becomes used to the medicine. This does NOT mean you are addicted. Addiction is a behavior related to getting and using a drug for a non-medical reason. If you have pain, you have a medical reason to take pain medicine. Your doctor will tell you how much medicine to take. If your doctor wants you to stop the medicine, the dose will be slowly lowered over time to avoid any side effects. You may get drowsy or dizzy when you first start taking the medicine or change doses. Do not drive, use machinery, or do anything that may be dangerous until you know how the medicine affects you. Stand or sit up slowly. There are different types of narcotic medicines (opiates) for pain. If you take more than one type at the same time, you may have more side effects. Give your health care provider a list of all medicines you use. Your doctor will tell you how much medicine to take. Do not take more medicine than directed. Call emergency for help if you have problems breathing. The medicine will cause constipation. Try to have a bowel movement at least every 2 to 3 days. If you do not have a bowel movement for 3 days, call your doctor or health medical care administrator. Too much acetaminophen can be very dangerous. Do not take Tylenol (acetaminophen) or medicines that contain acetaminophen with this medicine. Many non-prescription medicines contain acetaminophen. Always read the labels carefully. You have been given the following additional information: Groin Strain Hydrocodone Bitartrate, Acetaminophen Oral tablet (Electronically signed by Ihsan Saldaña Dr. 11/10/2016 16:27)
--- NOTE | 2016-11-12 19:33 | ED MAR SUMMARY ---
..... Medication Administration Record [facility] [address] [place], [place] [id number] Patient: JEROMY HEALY Visit ID: [id number] 26y, M Weight: 65.7 kg Height/Length: 65.5 in BMI: 23.8 ALLERGIES: No Known Drug Allergy
--- NOTE | 2016-11-12 19:33 | ED MED RECONCILIATION SUMMARY ---
Patient: JEROMY HEALY Medication Reconciliation Report [facility] VisitID: [id number] [address] [place] [address] 26y, M Registration Date/Time: 11/08/2016 Weight: 65.7 kg Height/Length: (not available) BMI: 23.8 ALLERGIES: No Known Drug Allergy The patient's Home Medications are listed below: NONE. The source(s) of the original Home Medication information: patient The following Medications were given to the patient in the Emergency Department: None. The following Medications were prescribed to the patient: Motrin (available over the counter): take according to label instructions. -- Ihsan Saldaña Dr. [place] 5 mg / 325 mg tablets: take 1 orally every 6 hours as needed for pain. Dispense fifteen (15). No refill. Substitution is permissible. -- Ihsan Saldaña Dr.
--- NOTE | 2016-11-12 19:33 | ED MED RECONCILIATION SUMMARY ---
Patient: JEROMY HEALY Medication Reconciliation Report [facility] VisitID: [id number] [address] [place] [address] 26y, M Registration Date/Time: 11/08/2016 Weight: 65.7 kg Height/Length: (not available) BMI: 23.8 ALLERGIES: No Known Drug Allergy The patient's Home Medications are listed below: NONE. The source(s) of the original Home Medication information: patient The following Medications were given to the patient in the Emergency Department: None. The following Medications were prescribed to the patient: Motrin (available over the counter): take according to label instructions. -- Ihsan Saldaña Dr. [place] 5 mg / 325 mg tablets: take 1 orally every 6 hours as needed for pain. Dispense fifteen (15). No refill. Substitution is permissible. -- Ihsan Saldaña Dr.
--- NOTE | 2016-11-12 19:33 | ED DISCHARGE INSTRUCTIONS ---
Patient: JEROMY HEALY General Instructions [facility] VisitID: [id number] [place] [address] 26y, M Registration Date/Time: 11/08/2016 Strain of right inguinal area (acute). INSTRUCTIONS Warnings: CONTROLLED SUBSTANCE WARNINGS. GENERAL WARNINGS: Return or contact your physician immediately if your condition worsens or changes unexpectedly, if not improving as expected, or if other problems arise. Specifically return if pain, vomiting, bleeding, breathing difficulty or fever. Your Current Medications: CONTINUE TAKING THE FOLLOWING MEDICATIONS: None*. Prescription Medications: [place] 5 mg / 325 mg tablets: take 1 orally every 6 hours as needed for pain. Dispense fifteen (15). No refill. Substitution is permissible. OTC Medications: Motrin (available over the counter): take according to label instructions. Follow-up: Return to the emergency department as needed. Follow up with your doctor in three days. Reason for referral: recheck today's concerns. Summary of care provided to patient via paper. Screening today revealed the patient's blood pressure to be in the normal range. The patient should follow up with a primary care provider for blood pressure management. Understanding of the discharge instructions verbalized by patient. ADDITIONAL INFORMATION Groin Strain [Adult] A groin strain is a stretching or partial tearing in the muscle of the lower abdomen or upper thigh. This may occur as a result of excessive coughing, heavy lifting, or strenuous sports. The pain may last for several days to several weeks, depending on how bad the stretch or tear is. This will improve with rest, ice, and anti-inflammatory medicines. A groin strain can lead to a groin hernia (inguinal hernia). A hernia is a complete tear of the abdominal muscle, which allows abdominal contents (fat or intestines) to bulge forward and create a visible swelling just above the thigh crease. This is a more serious problem and may need surgery to repair it. When you lie down, the bulge should reduce in size or disappear completely. If it does not, and you are unable to flatten it with your hand, medical attention is needed at once. Home Care: Avoid heavy lifting and straining or any activities that cause groin pain. You may use acetaminophen (Tylenol) or ibuprofen (Motrin, Advil) to control pain, unless another pain medicine was prescribed. [NOTE: If you have chronic liver or kidney disease or ever had a stomach ulcer or GI bleeding, talk with your doctor before using these medicines.] Follow Up with your physician, or as directed by our staff. Make an appointment with your doctor if you develop a bulge in the area of the groin strain. Return Promptly or contact your doctor if any of the following occur: Increasing pain in the area of the groin strain Tender bulge just above the groin crease that does not flatten when you lie down or press on it Generalized abdominal swelling or pain Fever of 100.4F (38C) or higher, or as directed by your healthcare provider Repeated vomiting Pain moves to the lower right abdomen (just below the waistline) or spreads to the back Hydrocodone Bitartrate, Acetaminophen Oral tablet What is this medicine? ACETAMINOPHEN; HYDROCODONE (a set a LAURA ananth fen; twan droe KOE done) is a pain reliever. It is used to treat mild to moderate pain. How should I use this medicine? Take this medicine by mouth. Swallow it with a full glass of water. Follow the directions on the prescription label. If the medicine upsets your stomach, take the medicine with food or milk. Do not take more than you are told to take. Talk to your computer systems security administrator regarding the use of this medicine in children. This medicine is not approved for use in children. What side effects may I notice from receiving this medicine? Side effects that you should report to your doctor or health progressive care nurse as soon as possible: allergic reactions like skin rash, itching or hives, swelling of the face, lips, or tongue breathing problems confusion feeling faint or lightheaded, falls stomach pain yellowing of the eyes or skin Side effects that usually do not require medical attention (report to your doctor or health progressive care nurse if they continue or are bothersome): nausea, vomiting stomach upset What may interact with this medicine? alcohol antihistamines isoniazid medicines for depression, anxiety, or psychotic disturbances medicines for sleep muscle relaxants naltrexone narcotic medicines (opiates) for pain phenobarbital ritonavir tramadol What if I miss a dose? If you miss a dose, take it as soon as you can. If it is almost time for your next dose, take only that dose. Do not take double or extra doses. Where should I keep my medicine? Keep out of the reach of children. This medicine can be abused. Keep your medicine in a safe place to protect it from theft. Do not share this medicine with anyone. Selling or giving away this medicine is dangerous and against the law. Store at room temperature between 15 and 30 degrees C (59 and 86 degrees F). Protect from light. Keep container tightly closed. Throw away any unused medicine after the expiration date. Discard unused medicine and used packaging carefully. Pets and children can be harmed if they find used or lost packages. What should I tell my health care provider before I take this medicine? They need to know if you have any of these conditions: brain tumor Crohn's disease, inflammatory bowel disease, or ulcerative colitis drink more than 3 alcohol-containing drinks per day drug abuse or addiction head injury heart or circulation problems kidney disease or problems going to the bathroom liver disease lung disease, asthma, or breathing problems an unusual or allergic reaction to acetaminophen, hydrocodone, other opioid analgesics, other medicines, foods, dyes, or preservatives or trying to get breast-feeding What should I watch for while using this medicine? Tell your doctor or health progressive care nurse if your pain does not go away, if it gets worse, or if you have new or a different type of pain. You may develop tolerance to the medicine. Tolerance means that you will need a higher dose of the medicine for pain relief. Tolerance is normal and is expected if you take the medicine for a long time. Do not suddenly stop taking your medicine because you may develop a severe reaction. Your body becomes used to the medicine. This does NOT mean you are addicted. Addiction is a behavior related to getting and using a drug for a non-medical reason. If you have pain, you have a medical reason to take pain medicine. Your doctor will tell you how much medicine to take. If your doctor wants you to stop the medicine, the dose will be slowly lowered over time to avoid any side effects. You may get drowsy or dizzy when you first start taking the medicine or change doses. Do not drive, use machinery, or do anything that may be dangerous until you know how the medicine affects you. Stand or sit up slowly. There are different types of narcotic medicines (opiates) for pain. If you take more than one type at the same time, you may have more side effects. Give your health care provider a list of all medicines you use. Your doctor will tell you how much medicine to take. Do not take more medicine than directed. Call emergency for help if you have problems breathing. The medicine will cause constipation. Try to have a bowel movement at least every 2 to 3 days. If you do not have a bowel movement for 3 days, call your doctor or health progressive care nurse. Too much acetaminophen can be very dangerous. Do not take Tylenol (acetaminophen) or medicines that contain acetaminophen with this medicine. Many non-prescription medicines contain acetaminophen. Always read the labels carefully. You have been given the following additional information: Groin Strain Hydrocodone Bitartrate, Acetaminophen Oral tablet (Electronically signed by Ihsan Saldaña Dr. 11/10/2016 16:27)
--- NOTE | 2016-11-12 19:33 | ED MAR SUMMARY ---
..... Medication Administration Record [facility] [address] [place], [place] [id number] Patient: JEROMY HEALY Visit ID: [id number] 26y, M Weight: 65.7 kg Height/Length: 65.5 in BMI: 23.8 ALLERGIES: No Known Drug Allergy
== END 2016-11-08 03:12 | disposition home or self-care (01) ==
LOC: ED SRH 01:36
DX: S76.811A Strain of other specified muscles, fascia and tendons at thigh level, right thigh, initial encounter (principal); X58.XXXA Exposure to other specified factors, initial encounter; Y93.9 Activity, unspecified; Y99.9 Unspecified external cause status; Y92.9 Unspecified place or not applicable; N43.3 Hydrocele, unspecified